=== PATIENT | male | born 1995 | race Caucasian/White ===

== ENCOUNTER 2018-03-19 17:42 | Emergency (ER) | payer SELFPAY ==
[2018-03-19] MEDS ORDERED: NALOXONE HCL 0.4 MG/ML INJ ONE (18:04)
[2018-03-19] MEDS ORDERED: NALOXONE HCL 0.4 MG/ML INJ IVP ONE (18:12)
[2018-03-19 18:44] LABS: PLATELET COUNT 240 10^3/uL (150-400)
--- NOTE | 2018-03-19 20:34 | EDPHY ---
H & P Stated Complaint: SI, poly pharm Time Seen by Provider: 03/19/18 18:00 HPI/ROS: Chief complaint: Unresponsive History of present illness: This is a 23-year-old male who was brought to the emergency department by police. According to the report I was given patient was under the influence of multiple drugs, having admitted to opioids, meth and cocaine. Police brought him for medical evaluation. It is my understanding that he is under arrest. There was concern about suicidal ideation although I was not given any specific information that he made a specific statement. On my initial evaluation patient is clearly under the influence of drugs, responsive to painful stimuli only. Review of systems: Unable to obtain given level of consciousness - Personal History Current Tetanus/Diphtheria Vaccine: Unsure Current Tetanus Diphtheria and Acellular Pertussis (TDAP): Unsure - Medical/Surgical History Hx Asthma: Yes Hx Chronic Respiratory Disease: No Hx Diabetes: No Hx Cardiac Disease: No Hx Renal Disease: No Hx Cirrhosis: No Hx Alcoholism: No Hx HIV/AIDS: No Hx Splenectomy or Spleen Trauma: No Other PMH: depression, drug abuse - Social History Smoking Status: Current every day smoker - Physical Exam Exam: General Appearance: Alert to painful stimuli. Eyes: Pupils equal and round no pallor or injection. ENT, Mouth: Mucous membranes moist. No hemotympanum, no marques sign, no raccoon eyes. Respiratory: There are no retractions, lungs are clear to auscultation. Cardiovascular: Regular rate and rhythm. Gastrointestinal: Bowel sounds are normal. Abdomen is soft and nondistended. Neurological: Alert to verbal stimuli. Purposeful movement of all extremities. Skin: Warm and dry, no rashes. Musculoskeletal: Head is without crepitus or bony deformity. Neck is supple non tender. Chest wall intact palpation. Purposeful movement of the extremities. Psychiatric: Responsive to painful stimuli. Constitutional: Initial Vital Signs Temperature (C) 36.4 C 03/19/18 17:42 Heart Rate 87 03/19/18 17:42 Respiratory Rate 16 03/19/18 17:42 Blood Pressure 116/66 03/19/18 17:42 O2 Sat (%) 96 03/19/18 17:42 O2 Delivery Mode Room Air O2 (L/minute) 2 Allergies/Adverse Reactions: No Known Allergies Allergy (Verified 03/19/18 18:14) Medical Decision Making - Diagnostics Imaging Results: Imaging Impressions Chest X-Ray 03/19/18 18:09 Impression: Clear lungs. Negative portable chest. Imaging: I viewed and interpreted images myself ED Course/Re-evaluation: Patient was discussed with my secondary supervising physician Dr. Alessandra Sampson. Patient was brought to the emergency department by police for apparent medical evaluation from multi drug abuse. On initial evaluation he was responsive to painful stimuli only. Physical exam was largely unremarkable. However he did desaturate and had to be placed on oxygen. He was protecting his airway. Chest x-ray was obtained and negative. Given report of opioid use he was given a small amount of Narcan with no improvement. Patient was observed in the emergency department for a number of hours. He awoke, he was conversing with me. He did become very agitated. However, I did have a discussion with him. He does admit to drug abuse. He denies suicidal ideation. He denies homicidal ideation. He denies illness or injury. He is just very upset about his life situation. I did talk with our on-call psychiatric provider, the patient was seen previously through [facility] mostly for substance abuse. No suicide attempts, no recent psychiatric history according to them. I talked with nursing staff who have been caring for patient in the ED and they report to me that he has not expressed any SI, HI or other concerns to them. At this time I do not appreciate any need for medical intervention. I do not appreciate any need for psychiatric intervention through the emergency department, he does not meet requirements for a mental health hold. He is under arrest by the police and has been discharged in their care. He was extremely upset that he was discharged with the police. We were unable to talk him down. He did have to be restrained when taken into police custody by security and the police. - Data Points Laboratory Results: Laboratory Results 03/19/18 18:11 03/19/18 18:11 03/19/18 03/19/18 03/19/18 18:11 18:11 17:45 WBC 6.57 10^3/uL 10^3/uL (3.80-9.50) RBC 5.13 10^6/uL 10^6/uL (4.40-6.38) Hgb 15.7 g/dL g/dL (13.7-17.5) Hct 46.3 % % (40.0-51.0) MCV 90.3 fL fL (81.5-99.8) MCH 30.6 pg pg (27.9-34.1) MCHC 33.9 g/dL g/dL (32.4-36.7) RDW 13.0 % % (11.5-15.2) Plt Count 240 10^3/uL 10^3/uL (150-400) MPV 9.4 fL fL (8.7-11.7) Neut % (Auto) 56.5 % % (39.3-74.2) Lymph % (Auto) 31.7 % % (15.0-45.0) [place] % (Auto) 8.1 % % (4.5-13.0) Eos % (Auto) 2.4 % % (0.6-7.6) Baso % (Auto) 0.8 % % (0.3-1.7) Nucleat RBC Rel Count 0.0 % % (0.0-0.2) Absolute Neuts (auto) 3.72 10^3/uL 10^3/uL (1.70-6.50) Absolute Lymphs (auto) 2.08 10^3/uL 10^3/uL (1.00-3.00) Absolute Monos (auto) 0.53 10^3/uL 10^3/uL (0.30-0.80) Absolute Eos (auto) 0.16 10^3/uL 10^3/uL (0.03-0.40) Absolute Basos (auto) 0.05 10^3/uL 10^3/uL (0.02-0.10) Absolute Nucleated RBC 0.00 10^3/uL 10^3/uL (0-0.01) Immature Gran % 0.5 % % (0.0-1.1) Immature Gran # 0.03 10^3/uL 10^3/uL (0.00-0.10) Sodium 147 mEq/L H mEq/L (135-145) Potassium 3.8 mEq/L mEq/L (3.3-5.0) Chloride 113 mEq/L H mEq/L (97-110) Carbon Dioxide 23 mEq/l mEq/l (22-31) Anion Gap 11 mEq/L mEq/L (8-16) BUN 13 mg/dL mg/dL (7-23) Creatinine 1.1 mg/dL mg/dL (0.7-1.3) Estimated GFR > 60 Glucose 75 mg/dL mg/dL (70-100) Calcium 9.1 mg/dL mg/dL (8.5-10.4) Salicylates < 1.0 mg/dL L mg/dL (2.0-20.0) Urine Opiates Screen NEGATIVE (NEGATIVE) Acetaminophen < 10 mcg/mL L mcg/mL (10-30) Urine Barbiturates NEGATIVE (NEGATIVE) Ur Phencyclidine Scrn NEGATIVE (NEGATIVE) Ur Amphetamine Screen NEGATIVE (NEGATIVE) U Benzodiazepines Scrn NEGATIVE (NEGATIVE) Urine Cocaine Screen NON-NEGATIVE H (NEGATIVE) U Marijuana (THC) Screen NON-NEGATIVE H (NEGATIVE) Ethyl Alcohol 309 mg/dL H mg/dL (0-10) Medications Given: Discontinued Medications Lorazepam (Ativan Injection) 1 mg IM Q4HRS PRN PRN Reason: Anxiety, Unable to Take PO Stop: 09/15/18 20:48 Last Admin: 03/19/18 20:52 Dose: 1 mg Naloxone HCl (Narcan) 0.4 mg IVP EDNOW ONE Stop: 03/19/18 18:13 Last Admin: 03/19/18 18:13 Dose: 0.4 mg Departure - Departure Disposition: Law Enforcement/Court/Long-Term Clinical Impression: Polysubstance abuse Condition: Good Instructions: Polysubstance Abuse (ED) Additional Instructions: Follow-up with a primary care doctor for recheck Follow-up with [facility] for help If symptoms worsen or new symptoms develop return to the emergency room for recheck you are medically cleared for [facility] Referrals: [facility],. [Clinic] - As per Instructions [facility],. [Clinic] - As per Instructions
[2018-03-19] MEDS ORDERED: LORazepam 2 MG/ML INJ ONE (20:47)
[2018-03-19] MEDS ORDERED: LORazepam 2 MG/ML INJ IM PRN (20:49)
[2018-03-19 21:04] VITALS: BP 120/60
== END 2018-03-19 21:08 ==
DX: F19.10 Other psychoactive substance abuse, uncomplicated (principal); J45.909 Unspecified asthma, uncomplicated; F17.200 Nicotine dependence, unspecified, uncomplicated
CPT/HCPCS: 80305; 96374; G0480; J2060; J2310